=== PATIENT | male | born 1980 | race Caucasian/White ===

== ENCOUNTER 2017-01-07 22:36 | Emergency (ER) | payer OTHER ==
[~2017-01-07] VITALS: Ht 182.9 cm; Wt 123.5 kg
[2017-01-07 23:17] LABS: HEMATOCRIT 43.9 % (38.0-50.0); MCH 30.5 PG (29.0-34.0); MCHC 34.4 G/DL (30.0-36.0); MCV 88.7 FL (86-99); MEAN PLAT.VOLUME 10.3 uM^3 (9.0-12.4); PLATELET COUNT 278 K/uL (156-360); RBC DIS.WIDTH-SD 38.5 % (39-53); RED BLOOD COUNT 4.95 M/uL (4.00-5.50)
[2017-01-07 23:24] LABS: CHLORIDE 105 mEq/L (99-109); SODIUM 139 mEq/L (136-147)
[2017-01-07 23:26] LABS: GLUCOSE 77 mg/dL (70-99)
[2017-01-07 23:27] LABS: ANION GAP 6 MEQ/L (2-14)
[2017-01-07 23:30] LABS: GFR ESTIMATE (CALCULATED) > 59 mL/min/
[2017-01-07 23:31] LABS: UREA NITROGEN (BUN) 16 mg/dL (9-23)
[2017-01-07 23:38] LABS: TROP-I INTERPRETATION NEGATIVE; TROPONIN-I < 0.01 ng/mL (0.0-0.30)
[2017-01-08] MEDS ORDERED: ATARAX,VISTARIL50 MG PO (00:07)
[2017-01-08 00:29] VITALS: BP 116/69
== END 2017-01-08 00:29 | disposition home or self-care (01) ==
LOC: RME 22:36 → EME 22:36 → RME 01-08 00:29
PROVIDERS: Physician Assistant
DX: R07.89 Other chest pain (principal); F41.9 Anxiety disorder, unspecified; F17.200 Nicotine dependence, unspecified, uncomplicated
CPT/HCPCS: 71020; 80048; 84484; 85027; 93005; 99281; 99285; Q0177